=== PATIENT | female | born 1945 | race Hispanic/Latino ===

== ENCOUNTER 2017-06-06 20:05 | Emergency (ER) | payer BC ==
[2017-06-06 20:14] VITALS: BP 171/96; PULSE 69; RESP 16; TEMP 97.6; O2SAT 100
--- NOTE | 2017-06-06 20:48 | ED PDOC ---
HPI: General Adult Time Seen by Provider: 06/06/17 20:26 Chief Complaint (Nursing): Abnormal Skin Integrity Chief Complaint (Provider): Fall History Per: Patient History/Exam Limitations: no limitations Onset/Duration Of Symptoms: Days (Today 7pm) Current Symptoms Are (Timing): Still Present Additional Complaint(s): Pt. was walking and got her foot on a sticky piece on the floor. She then accidentally fell face down. LOC briefly and feels light-headed currently. Pain to the lower lip and chin. No vision changes, numbness, tingles, neck pain , arm or leg pain, chest pain, dyspnea, weakness, numbness, tingles. No nausea. Remembers incident. Ambulated after. No back pain. No tdap. Past Medical History Reviewed: Nursing Documentation, Vital Signs Vital Signs: Last Vital Signs Temp 97.6 F 06/06/17 20:14 Pulse 69 06/06/17 20:14 Resp 16 06/06/17 20:14 BP 171/96 H 06/06/17 20:14 Pulse Ox 100 06/06/17 20:50 - Medical History PMH: HTN, Hypercholesterolemia Other PMH: high sugar - Surgical History Surgical History: No Surg Hx - Family History Family History: States: Unknown Family Hx - Living Arrangements Living Arrangements: With Family - Social History Current smoker - smoking cessation education provided: No Alcohol: None Drugs: Denies - Allergies Allergies/Adverse Reactions: Allergies Allergy/AdvReac Type Severity Reaction Status Date / Time No Known Allergies Allergy Unverified 03/12/13 14:31 Review of Systems ROS Statement: Except As Marked, All Systems Reviewed And Found Negative ENT: Positive for: Mouth Pain Neurological: Positive for: Headache, Dizziness Physical Exam - Reviewed Vital Signs Reviewed: Yes - Physical Exam Appears: Positive for: Non-toxic, No Acute Distress Head Exam: Positive for: ATRAUMATIC, NORMAL INSPECTION, NORMOCEPHALIC Skin: Positive for: Normal Color, Warm, DRY Eye Exam: Positive for: EOMI, Normal appearance, PERRL ENT: Positive for: Other (no septal hematoma, no loose teeth; lower lip mucosa central with abrasion; chin anterior near lip centrally with abrasion tender mild.). Negative for: Nasal Congestion, Pharyngeal Erythema Neck: Positive for: Normal, Painless ROM Cardiovascular/Chest: Positive for: Regular Rate, Rhythm Respiratory: Positive for: CNT, Normal Breath Sounds Gastrointestinal/Abdominal: Positive for: Normal Exam, Bowel Sounds, Soft. Negative for: Tenderness Back: Positive for: Normal Inspection. Negative for: L CVA Tenderness, R CVA Tenderness Extremity: Positive for: Normal ROM. 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 Negative for: Motor/Sensory Deficits, Facial Droop - ECG O2 Sat by Pulse Oximetry: 100 Pulse Ox Interpretation: Normal - Progress ED Course And Treament: 2302: Stable. No fx or bleeding. Pt. not on blood thinners. AAOx3. Pain free. Tolerated PO. Ambulated with no issues. Fu with pcp. Disposition - Clinical Impression Clinical Impression: Head injuries, Abrasion Counseled Patient/Family Regarding: Studies Performed, Diagnosis, Need For Followup - Disposition Referrals: [facility] [Outside] - 06/07/17 Disposition: Routine/Home Disposition Time: 23:03 Condition: IMPROVED Additional Instructions: Return if not better in 3 days. Instructions: Head Injury (ED), Abrasion (ED) Forms: GIVTED (Lithuanian)
[2017-06-06] MEDS ORDERED: Tetanus/Diphtheria Toxoids 0.5 ml Syringe IM ONE (21:09)
--- NOTE | 2017-06-06 22:06 | CT ---
EXAM: CT Head Without Intravenous Contrast CLINICAL HISTORY: 72 years old, female; Injury or trauma; Fall; Initial encounter; Concussion / head injury; With loss of consciousness; Loss of consciousness for 30 minutes or less; Additional info: Headache. Sent phy. Doc. TECHNIQUE: Axial computed tomography images of the head/brain without intravenous contrast. All CT scans at this facility use one or more dose reduction techniques, viz.: automated exposure control; ma/kV adjustment per patient size (including targeted exams where dose is matched to indication; i.e. head); or iterative reconstruction technique. Coronal and sagittal reformatted images were created and reviewed. COMPARISON: No relevant prior studies available. FINDINGS: Brain: Minimal atrophy. No intracranial hemorrhage. No mass. Few scattered foci of decreased attenuation within periventricular/subcortical white matter. Probable chronic lacunar infarcts about internal capsule/basal ganglia. No edema. Ventricles: No hydrocephalus. Bones/joints: No calvarial fracture. Vasculature: Mild atherosclerotic disease of intracranial arteries. Mastoid air cells: No mastoid effusion. IMPRESSION: 1. No intracranial hemorrhage. 2. Nonspecific white matter changes. 3. See facial bone CT report for additional details. 4. Incidental/non-acute findings are described above.
--- NOTE | 2017-06-06 22:10 | CT ---
EXAM: CT Maxillofacial Without Intravenous Contrast CLINICAL HISTORY: 72 years old, female; Pain and injury or trauma; Fall; Initial encounter; Bleeding/hemorrhage; Lip/oral cavity; Lower; Jaw pain and other: Lip; Additional info: Facial pain. Sent phy. Doc. TECHNIQUE: Axial computed tomography images of the face without intravenous contrast. All CT scans at this facility use one or more dose reduction techniques, viz.: automated exposure control; ma/kV adjustment per patient size (including targeted exams where dose is matched to indication; i.e. head); or iterative reconstruction technique. Coronal and sagittal reformatted images were created and reviewed. COMPARISON: No relevant prior studies available. FINDINGS: Bones/joints: Degenerative changes of cervical spine. No acute fracture. Soft tissues: Mild perioral soft tissue swelling. Orbits: Unremarkable as visualized. Sinuses: Scattered minimal mucosal thickening. No air-fluid levels. IMPRESSION: 1. No fracture. 2. Incidental/non-acute findings are described above.
== END 2017-06-06 23:19 | disposition home or self-care (01) ==
LOC: H.ER 20:05
DX: S09.90XA Unspecified injury of head, initial encounter (principal); S00.81XA Abrasion of other part of head, initial encounter; W19.XXXA Unspecified fall, initial encounter; Y92.89 Other specified places as the place of occurrence of the external cause; E78.00 Pure hypercholesterolemia, unspecified; I10 Essential (primary) hypertension